=== PATIENT | female | born 1995 | race Caucasian/White ===

== ENCOUNTER 2016-07-09 23:30 | Emergency (ER) | payer OTHER ==
[~2016-07-09 23:30] MED LIST: HYDROXYZINE HCL25 M1 PO; LAMICTAL ODT100 MG PO; LEXAPRO 10MG10 MG PO; LORAZEPAM0.5 M1 PO; NEXPLANON68 MG ID
== END 2016-07-09 23:59 | disposition home or self-care (01) ==
LOC: ED 23:30
DX: R25.1 Tremor, unspecified (principal); F41.9 Anxiety disorder, unspecified; Z91.138 Patient's unintentional underdosing of medication regimen for other reason